=== PATIENT | female | born 1950 | race African-American/Black ===

== ENCOUNTER → 2024-01-18 | Day surgery (SDC) | payer MEDICARE, OTHER ==
[~2024-01-18] MED LIST: REGADENOSON 0.4 MG/5 ML IV ONE
== END | disposition home or self-care (01) ==
LOC: NM 08:49
PROVIDERS: ATTEND Internal Medicine
DX: I50.30 Unspecified diastolic (congestive) heart failure (principal); R93.1 Abnormal findings on diagnostic imaging of heart and coronary circulation; Z87.891 Personal history of nicotine dependence
CPT/HCPCS: 78452; 93017; J2785; A9500